=== PATIENT | female | born 1965 | race Caucasian/White ===

== ENCOUNTER 2024-04-27 10:06 | Day surgery (SDC) | payer OTHER, SELFPAY ==
[2024-04-27] VITALS (8 sets, daily range): BP systolic 106–135; BP diastolic 77–109; PULSE 77–98; RESP 16–18; TEMP 36.2–37.2; O2SAT 92–100; BMI 36.7
--- NOTE | 2024-04-27 10:52 | PRE.ANES_ITS ---
ASA Classification* ASA Classification ASA Classification: 2 Assessment & Plan Anesthesia* Anesthesia Assessment Anesthesia Assessment: Discussed sedation and/or anesthesia options, risks, benefits, and alternatives with patient/parents/legal guardian/POA. Questions invited. The patient/parents/legal guardian/POA seems to understand and agrees to proceed with anesthesia plan. Reviewed the physical assessment, medical history, allergy history and patient home medications list prior to surgery/procedure/anesthetic and documented any changes. Performed airway and anesthesia risk assessments. Anesthesia Type Anesthesia Type: General Anesthesia Focused Assessment* Temperature: 99.0 F Pulse Rate: 77 Blood Pressure: 119/83 Respiratory Rate: 16 Pulse Ox: 100 Airway Assessment Mouth opens: >3 cm Mallampati Score: II Focused Labs Anesthesia Preop lab: CBC CHEMISTRY COAG Pre-Assessment Diagnosis/Proposed Procedure Planned Operative Procedure(s): (L) Midfoot Fusion Multiple Joints with [place] Bunion Correction [place] Bone Graft Plantar Fasciotomy Anesthesia History Anesthesia History - mounter smoking pipe: Anesthesia History - mounter smoking pipe Hx Hospitalization No 04/13/24 11:07 Any Problems With Anesthesia No 04/13/24 11:07 Cholinesterase deficiency No 04/13/24 11:07 You/Your Family Experience No 04/13/24 11:07 fever (hyperthermia) with Relationship Recent Exposure to Contagious No 04/27/24 10:40 Disease Does patient have nerve No 04/13/24 11:07 stimulator Patient instructed to have device shut off --Does patient have Pacemaker No 04/27/24 10:40 or ICD? When Was Last Pacemaker Check QUESTION #4 FULL TEXT: You/Your Family Experience fever (hyperthermia) with Anesthesia Last Oral Intake Last Oral intake: Last Oral Intake NPO since 20:00 04/27/24 10:40 Meds taken in AM with sips of water? Meds patient instructed to take am of surgery PONV PONV - mounter smoking pipe: PONV - mounter smoking pipe Female Yes 04/13/24 11:07 HX of Motion Sickness No 04/13/24 11:07 HX of N/V After Surgery No 04/13/24 11:07 Non-Smoker Yes 04/13/24 11:07 Duration of Surgery greater Yes 04/13/24 11:07 than 60 minutes Number of Risk Factors 3 04/13/24 11:07 PONV Score Moderate Risk 04/13/24 11:07 Height & Weight Height & Weight: Anesthesia: Height & Weight Height 5 ft 4 in 04/27/24 10:40 Weight: 97.1 kg 04/27/24 10:40 Body Mass Index (BMI) 36.7 04/27/24 10:40 Respiratory Assessment Respiratory Assessment - mounter smoking pipe: Respiratory Tract Infection Hx - mounter smoking pipe Hx Respiratory Tract Infection No 04/13/24 11:07 STOP Sleep Apnea STOP Sleep Apnea - mounter smoking pipe: STOP Sleep Apnea - mounter smoking pipe Hx Hypertension No 04/13/24 11:07 Hx Sleep Apnea Yes 04/13/24 11:07 CPAP No 04/13/24 11:07 BIPAP No 04/13/24 11:07 Do you snore loudly (louder than talking or can be heard Do you often feel tired/ fatigued/ sleepy during daytime? Has anyone observed you stop breathing during sleep? STOP Results Positive 04/13/24 11:07 QUESTION #5 FULL TEXT : Do you snore loudly (louder than talking or can be heard through closed doors)? 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 Specify any problems Hx of Preganancy in last 3 No 04/13/24 11:07 Months Nurse Filling Out Transfusion MGRIFFITH 04/13/24 11:07 & Questions: Date: 04/13/24 04/13/24 11:07 Time: 11:10 04/13/24 11:07 Patient unable to answer at this time (ie. confused, unrespo /Reproduction History /Reproductive History - mounter smoking pipe: /Reproductive Hx- mounter smoking pipe Hx Now Gestational Age (in weeks): EDC: Hx Hx Para Hx Section SAB Active Medications Active Medications: Current Medications Generic Name Dose Route Start Last Admin Trade Name Freq PRN Reason Stop Dose Admin Cefazolin Sodium 2 gm/ N/A 20 mls @ 400 mls/hr 04/27/24 12:00 IV 04/27/24 12:02 PREOP ONE [facility] Medical History Arthritis Excessive bleeding Restless legs History of ulceration Gastric reflux Sleep apnea Asthma Shortness of breath on exertion Chews tobacco History of edema Home Medications ?Medication ?Instructions ?Recorded ?Last Taken ?Type diclofenac sodium 75 mg 75 mg PO BID 04/13/24 Unknow n History tablet,delayed release omeprazole 20 mg capsule,delayed 20 mg PO DAILY Unknown History release tramadol 50 mg tablet 50 mg PO BID 04/13/24 Unknow n History Allergy/AdvReac Type Severity Reaction Status Date / Time ibuprofen Allergy Hives Verified 04/13/24 11:03 Surgical History History of colonoscopy History of total right hip replacement Social History Smoking Status: Never smoker Review of Systems (Anesthesia) ROS Narrative System reviewed and no additional complaints, except as documented.
--- NOTE | 2024-04-27 11:00 | RAD_ITS ---
PROCEDURE: FOOT 2 VIEWS; O.R. FLUORO FOR C-ARM REASON FOR EXAM: Fusion TECHNIQUE: Left foot x-ray three views and spot fluoroscopic x-ray COMPARISON: None. FINDINGS: Casted left lower extremity demonstrating complex orthopedic hardware in the midfoot as well as at the 5th metatarsal with healing fractures. Cast material obscures underlying fine osseous detail. Spot fluoroscopic image from the OR submitted. Please refer to operative report for full details. Total operative fluoroscopic time 154 seconds. RAD/O.R. Fluoro for C-Arm IMPRESSION: As above. Reading Location: [facility]
--- NOTE | 2024-04-27 11:00 | RAD_ITS ---
PROCEDURE: FOOT 2 VIEWS; O.R. FLUORO FOR C-ARM REASON FOR EXAM: Fusion TECHNIQUE: Left foot x-ray three views and spot fluoroscopic x-ray COMPARISON: None. FINDINGS: Casted left lower extremity demonstrating complex orthopedic hardware in the midfoot as well as at the 5th metatarsal with healing fractures. Cast material obscures underlying fine osseous detail. Spot fluoroscopic image from the OR submitted. Please refer to operative report for full details. Total operative fluoroscopic time 154 seconds. RAD/Foot 2 Views IMPRESSION: As above. Reading [facility]
--- NOTE | 2024-04-27 12:12 | PCM.HP.STD ---
HPI - General General Date of Service: 04/27/24 Chief Complaint: painful arthritis left foot HPI Narrative PILAR CRUM, is a 59 F who presents elevate reinforce dressing, chronic oa of the left foot PFS Medical History (Updated 04/27/24 @ 12:[address] Mega Ortiz MD) Arthritis Excessive bleeding Restless legs History of ulceration Gastric reflux Sleep apnea Asthma Shortness of breath on exertion Chews tobacco History of edema Home Medications ?Medication ?Instructions ?Recorded ?Last Taken ?Type diclofenac sodium 75 mg 75 mg PO BID 04/13/24 Unknown History tablet,delayed release omeprazole 20 mg capsule,delayed 20 mg PO DAILY 04/13/24 Unknown History release tramadol 50 mg tablet 50 mg PO BID 04/13/24 Unknown History Allergy/AdvReac Type Severity Reaction Status Date / Time ibuprofen Allergy Hives Verified 04/13/24 11:03 Surgical History History of colonoscopy History of total right hip replacement Social History Smoking Status: Never smoker Vital Signs Vital Signs Vital Signs: 04/27/24 10:40 04/27/24 10:40 04/27/24 10:52 Temperature 99.0 F 99.0 F Temperature Source Temporal Pulse Rate 77 77 Respiratory Rate 16 16 Respiratory Pattern Normal Blood Pressure 119/83 H 119/83 H Blood Pressure Mean 95 Blood Pressure Source Monitor Blood Pressure Position Semi-Fowlers Blood Pressure Location Left Arm Pulse Ox 100 100 Oxygen Delivery Method Room Air Weight Weight: 97.1 kg Body Mass Index (BMI) 36.7 Physical Exam Narrative painful arthritis of the left foot and 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
[2024-04-27] MEDS: Cefazolin 2 GM in Syringe IV (12:23)
[2024-04-27] MEDS: Bupivacaine 0.25% 30 ML Vial (12:28)
--- NOTE | 2024-04-27 14:39 | DCINST_ITS ---
Discharge Instructions Diet Discharge Diet: 1800 Calorie Control Diet DC O2, CPAP, BIPAP needs Home O2 Discharge instructions: No Dressing / Incision Discharge Activity: May Drive and Use Walker May resume sexual activity in: 3 weeks Weight Bearing Status: No weight bearing Keep extremity elevated above heart level: Operative Extremity and Left Leg Dressing / Incision Call your doctor if your incision/area has: Continuous Slow Oozing and Swelling at the incision site Call your doctor if you observe: Fever of 101 or Higher and Uncontrolled pain Change Dressing in: do not change dressing Cleanse incision/area with: Keep Dressing Clean & Dry Follow Up Care Please Follow Up With: Mega Ortiz MD Test Results: Test results from this visit will be discussed in further detail at your follow- up appointment, if applicable. Discharge Plan Admission Primary Reason for Your Visit: FOOT ARTHRITIS Attending Provider: Mega Ortiz Primary Care Provider: Robe Barrera Instructions Print Language: German Discharge Orders/Prescriptions Prescriptions: Continued diclofenac sodium 75 mg tablet,delayed release (DR/EC) 75 mg PO BID omeprazole 20 mg capsule,delayed release(DR/EC) 20 mg PO DAILY Discontinued tramadol 50 mg tablet 50 mg PO BID Other Ambulatory Orders: Foot 2 Views (Routine) Facility: [facility] - Location: [facility] Ordered By: Dr. Mega Ortiz Referrals / Follow Up: Robe Barrera MD [Primary Care Provider] - Disposition Disposition (needs filled in before D/C Order can be placed): Home, Self Care
--- NOTE | 2024-04-27 14:55 | RAD_ITS ---
PROCEDURE: FOOT MIN 3 VIEWS REASON FOR EXAM: Postop midfoot fusion. TECHNIQUE: Three views of the left foot. V COMPARISON: None. FINDINGS: LEFT FOOT: Casting material overlies the left foot, limiting fine bony detail. Metallic hardware traverses several tarsal bones, consistent with midfoot fusion. Additional metallic hardware within the diaphysis and distal head of the 5th metatarsal, traversing an oblique fracture. Negative for hardware failure. Mild degenerative change involving the 1st MTP and a few IP joints. Posterior calcaneal enthesophyte. No bony destructive lesions are seen. Diffuse dorsal soft tissue swelling. RAD/Foot min 3 Views IMPRESSION: 1. Evidence of recent ORIF involving several tarsal bone/midfoot and 5th metata rsal, as described. 2. Mild degenerative changes most conspicuous at the 1st MTP joint. 3. No bony destructive lesions are seen. 4. Diffuse dorsal soft tissue swelling. Reading [facility]
--- NOTE | 2024-04-27 15:08 | PCM.POST.ANE ---
Anesthesia: Postop Eval I Current Vital Signs Temperature: 97.2 F Pulse Rate: 78 Blood Pressure: 125/84 Respiratory Rate: 16 Pulse Ox: 92 Oxygen Delivery Method: Room Air Assessment Airway patent: Yes Spontaneous unlabored respirations: Yes Mental status: Awake nausea: No Vomiting: No Anesthesia Complication: No Fluid Hydration Crystalloid volume administer (ml): 900 Total IV fluid infused: 900 Progress Note Anesthesia document: Postop Eval 1 completed: Yes
--- NOTE | 2024-04-27 15:22 | PCM.OPRPT ---
Problems Associated Problem List Diagnoses (1) Arthritis: (2) Plantar fasciitis of left foot: Operative Report (Standard) Operative Information Date of Procedure: 04/27/24 Pre-Operative Diagnosis: Midfoot arthritis multiple joints left foot Plantar fasciitis chronic Painful deformity left midfoot. Hypertrophic bone formation left midfoot. Tailor's bunion deformity left foot Post-Operative Diagnosis: Same as above Surgery/Procedure Performed: 1. Midfoot fusion multiple joints left midfoot., With osteotomy. 2. [place] bone graft large left calcaneus 3. Open plantar fasciectomy left plantar heel. #4 correction with osteotomy fifth metatarsal. graffiti cleaner: No Type of Anesthesia: Block,Regional and General RN Documented Start/Stop Times: Operation Date: 04/27/24 12:00 Case Time Into Pre-Op 04/27/24 10:37 Anesthesia Start 04/27/24 12:10 Into Room 04/27/24 12:10 Out of Pre-Op 04/27/24 12:10 Procedure Start 04/27/24 12:29 Procedure End 04/27/24 14:26 Anesthesia End 04/27/24 14:30 Out of Room 04/27/24 14:30 Into Recovery 04/27/24 14:32 Into Phase II Recovery 04/27/24 15:16 Out of Recovery 04/27/24 15:16 Procedure Start Time: 12:29 Procedure Stop Time: 14:26 Select all DRAINS/GRAFTS/IMPLANTS that apply: None Estimated Blood Loss: 30 Specimen collected: No Description of surgery: This patient is a very well-known patient of [facility] [place] for an ankle center which the patient has had continued ongoing problems with midfoot arthritis deformity and severe pain to the top of the foot we have tried injections, anti-inflammatories, shoe gear modifications. Patient has failed. She also has a severe tailor's bunion deformity on the lateral side of the fifth metatarsal that she would like corrected as well. Patient was seen with her daughter at this point she understands all risks complications benefits of the surgical procedure all questions were answered no guarantees given implied. Patient does understand there is chance for pain numbness bleeding chance for infection, nonunion, malunion, hardware failure, osteomyelitis,. At this point she also stands there is a chance for blood clot I did talk to her about starting baby aspirin afterwards massage her thigh and calf as well. Since she has to remain nonweightbearing. Patient was seen in the preoperative area chart reviewed and consent was signed. Patient then taken back to the operative room placed on table in normal supine position. Patient was given 2 g Ancef prior to the procedure. Patient was then placed the operating table at that point then tourniquet was placed about the left thigh after the patient was placed under general anesthetic. She did not want a block. At that point then we then injected an ankle block of 20 cc of quarter percent Marcaine plain around the ankle. At that point then it was then scrubbed prepped and draped usual aseptic technique. Prior to Esmarch reapplied we then made an incision along the lateral side of the calcaneus approximately 2 cm incision was then made I then inserted the trocar for the bone marrow aspirate at that point then we were able to pull out 60 cc of bone marrow from the calcaneus after removing this to be then sent off the back table with a portion of her fat from the heel as a autologous fat transfer as well at that point then it was then centrifuged and concentrated to PRP as well as PPP. BMA was used in conjunction with the graft that would take from the calcaneus That point then through this incision we then inserted a bone graft harvester along with a curette we scooped out another 6 cc of bone graft which is bone marrow and cancellous bone which would then same for fusion sites. This incision was then flushed and closed after we inserted a small amount of augment into the calcaneus and then closed the incision with 3-0 Prolene. Attention is then directed the dorsal aspect of the cuneiform navicular area as well as the second and third tarsometatarsal joints. It was approximately a 7 cm linear lysed incision was made just lateral to the neurovascular bundle it was incised down to including subcutaneous tissue with care being taken identify retract all vital neurovascular structures that point then the periosteum was reflected the tendons removed laterally tensor digitorum brevis muscle and extensor hallucis brevis muscle was then transected and removed as it was hypertrophic and sitting on top of the bony formation. At that point then it was removed next then a periosteal incision was made across the naviculocuneiform joint and then across the second tarsometatarsal joint at that point then the joints were then exposed there was a very large hypertrophic bone formation which was then excised with a sagittal saw. This The joints were then open especially second and third there was ankylosis at that point then I used a saw and I cut through the second and third I made a 0 degree cut between second and third tarsometatarsal joints thus removing the cartilaginous surfaces as well as the remaining bone fragments at that point then we then fenestrated both the second and third tarsometatarsal joints I injected then augment along with the bone graft we took from the calcaneus at least half of it. At that point then the wound had been flushed prior to placing this in there then we used a compressor distractor to close down the second tarsometatarsal joint I pinned the third tarsometatarsal joint and then we applied a micro quad speed plate on both the third tarsometatarsal joint as well as the second tarsometatarsal joint. Excellent compression has been noted the area was then checked on fluoroscopy AP MO and lateral views. At that point then we then tensions undirected back to the naviculocuneiform joint which these were severely arthritic at that same time then it was necessary to fuse these joints I then used a Tri tome as well as a straight osteotome to reflect the cartilage surface off of both the middle cuneiform as well as the lateral cuneiform and the navicular we then used a straight cut guide we cut both of these areas removing the cartilaginous surfaces thus closing the joints down we then again used the compressor distractor after fenestration I injected augment and bone graft from the calcaneus into these areas. At that point then we close then the speed plates again with the a much larger speed plate these were 51 size and they were then placed from the navicular bone to the cuneiform bone after they were drilled checked on fluoroscopy they were inserted properly. They are hammered and then reduced at that point. We closed the joint surfaces down there was excellent compression across these joint sites. The wounds then flushed with copious amounts normal sterile saline. Closed with 3-0 Vicryl and 3-0 Monocryl Steri-Strips were applied. Tensions undirected the plantar surface of the left plantar fascia a 4 cm linear lysed incision was made at the level of the medial calcaneal tuberosity it was incised down to including subcutaneous tissue I visualized the plantar fascia at that point then I made a wedge of plantar fascia excised from both the distal and proximal slips of the medial plantar band creating a large wedge thus creating a plantar fasciectomy. At that point then it was then flushed and closed with 3-0 Vicryl and 3-0 Prolene. Attention then directed the fifth metatarsal in which a 4 cm linear longitudinal incision was made along the dorsal lateral aspect of the fifth metatarsal incised along the fifth metatarsal dorsally cutting through the capsule capsulotomies then performed the head of the fifth metatarsal did not have a large medial eminence did not need to be resected previously at that point then I made a sagittal cut along the fifth metatarsal and is a through and through osteotomy using a sagittal saw. At that point then I inserted the broaches for the blade plate I used the small and then I saw that the medium was the correct size we chose a medium we inserted it I pinned across the fourth and fifth metatarsals and then I placed the screw which was a 22 mm screw the blade plate was solid and there was then flushed with copious amounts normal sterile saline. Patient was given hydrocodone for pain she is to remain nonweightbearing after speaking with her granddaughter at that point I sent her prescriptions for vitamin C as well as Os-Nahun follow-up in 2 weeks Surgical Findings: Severe arthritis midfoot most noted naviculocuneiform joint as well as second and third tarsometatarsal joints with deviation. Complications Complications: No
--- NOTE | 2024-04-29 10:45 | POSTOPAN2_ITS ---
Anesthesia Postop Eval I Sum Postop Eval Completion status Anesthesia document: Postop Eval 1 completed: Yes Anesthesia Postop Eval I Summary Anesthesia Postop Eval I Summary: Anesthesia Postop Eval I: Assessment Summary Airway patent Yes 04/27/24 15:11 [email or web address] Spontaneous unlabored Yes 04/27/24 15:11 [email or web address] respirations Mental status Awake 04/27/24 15:11 [email or web address] nausea No 04/27/24 15:11 [email or web address] Vomiting No 04/27/24 15:11 [email or web address] Anesthesia Postop Eval I: Fluid Summary Crystalloid volume administer 900 04/27/24 15:11 [email or web address] (ml) Colloids volume administered ( ml) Blood Product volume administered (ml) Total IV fluid infused 900 04/27/24 15:11 [email or web address] Anesthesia Postop Eval I: Summary Notes Anesthesia Complication No 04/27/24 15:11 [email or web address] Anesthesia Complication Comment: Post-operative progress note Anesthesia: Postop Eval II Evaluation Mental status: Awake Pain Level: 0 nausea: No Vomiting: No
--- NOTE | 2024-04-29 10:45 | PCM.POSTANE2 ---
Anesthesia Postop Eval I Sum Postop Eval Completion status Anesthesia document: Postop Eval 1 completed: Yes Anesthesia Postop Eval I Summary Anesthesia Postop Eval I Summary: Anesthesia Postop Eval I: Assessment Summary Airway patent Yes 04/27/24 15:11 [email or web address] Spontaneous unlabored Yes 04/27/24 15:11 [email or web address] respirations Mental status Awake 04/27/24 15:11 [email or web address] nausea No 04/27/24 15:11 [email or web address] Vomiting No 04/27/24 15:11 [email or web address] Anesthesia Postop Eval I: Fluid Summary Crystalloid volume administer 900 04/27/24 15:11 [email or web address] (ml) Colloids volume administered ( ml) Blood Product volume administered (ml) Total IV fluid infused 900 04/27/24 15:11 [email or web address] Anesthesia Postop Eval I: Summary Notes Anesthesia Complication No 04/27/24 15:11 [email or web address] Anesthesia Complication Comment: Post-operative progress note Anesthesia: Postop Eval II Evaluation Mental status: Awake Pain Level: 0 nausea: No Vomiting: No
== END 2024-04-27 15:46 | disposition home or self-care (01) ==
LOC: SDC 10:09 → AC 10:15
PROVIDERS: PCP Family Medicine; Referring Provider Podiatrist Foot & Ankle Surgery; Visit Provider Podiatrist Foot & Ankle Surgery
PROC: (CPT 28292; principal; 2024-04-27 11:45)
DX: M19.072 Primary osteoarthritis, left ankle and foot (principal); K21.9 Gastro-esophageal reflux disease without esophagitis; M72.2 Plantar fascial fibromatosis; Z79.891 Long term (current) use of opiate analgesic; Z79.1 Long term (current) use of non-steroidal anti-inflammatories (NSAID); M21.622 Bunionette of left foot
CPT/HCPCS: 28735; 20902; 28308; 28008; 01480; 73620; 73630; 76000; C1713; A4216; J2405